=== PATIENT | male | born 1935 | race Caucasian/White ===

== ENCOUNTER 2018-06-17 06:25 | Day surgery (SDC) | payer OTHER ==
[~2018-06-17 06:25] MED LIST: AMLODIPINE-BEN1 EAC2; BETHANECHOL CHL50 MG; CAPTOPRIL50 MG; COZAAR100 MG; FUROSEMIDE20 MG; LASIX20 MG; PANTOPRAZOLE SO20 MG; TOPROL XL50 M1
[2018-06-17] MEDS ORDERED: PERCOCET 5-3251 EACH PO (09:28)
[2018-06-17] MEDS ORDERED: NUPERCAINAL56.7 GM TOP (09:28)
== END 2018-06-17 15:10 | disposition home or self-care (01) ==
LOC: CIR.AMB 06:25
DX: K64.8 Other hemorrhoids (principal); K64.4 Residual hemorrhoidal skin tags

== ENCOUNTER 2018-07-13 02:19 | Emergency (ER) | payer OTHER ==
[~2018-07-13] VITALS: Ht 182.9 cm; Wt 77.1 kg
[~2018-07-13 02:19] MED LIST changes: +NUPERCAINAL56.7 GM TOP; +PERCOCET 5-3251 EACH PO
[2018-07-13] MEDS ORDERED: LOSARTAN POTASS50 MG (02:41)
[2018-07-13] MEDS ORDERED: MIRALAX17 GM (02:41)
[2018-07-13] MEDS ORDERED: LEVSIN/SL0.125 MG SL (07:20)
[2018-07-13] MEDS ORDERED: PEPCID AC20 MG PO (07:20)
[2018-07-13] MEDS ORDERED: INTESTINEX680 M1 PO (07:20)
== END 2018-07-13 07:59 | disposition home or self-care (01) ==
LOC: ER 02:19
DX: R10.84 Generalized abdominal pain (principal)

== ENCOUNTER 2018-07-16 05:47 | Inpatient (IN) | payer OTHER ==
[~2018-07-16] VITALS: Ht 182.9 cm; Wt 77.1 kg
[~2018-07-16 05:47] MED LIST changes: +INTESTINEX680 M1 PO; +LEVSIN/SL0.125 MG SL; +LOSARTAN POTASS50 MG; +MIRALAX17 GM; +PEPCID AC20 MG PO
[2018-07-16] MEDS ORDERED: CIPRO500 MG (06:08)
[2018-07-16] MEDS ORDERED: COZAAR100 MG (06:08)
[2018-07-16] MEDS ORDERED: AMLODIPINE BESYL5 MG (06:08)
[2018-07-16] MEDS ORDERED: ACID CONTROLLER20 MG (06:08)
[2018-07-16] MEDS ORDERED: FLAGYL500MG (06:09)
[2018-07-19] MEDS ORDERED: PROCTOCORT30 MG RECTAL ×2 (12:18)
== END 2018-07-19 16:53 | disposition home or self-care (01) | DRG 394 ==
LOC: ER 05:47 → SURH 14:34 → SEC-K 14:34 → SURH 16:16
PROVIDERS: ADMIT Surgery
PROC: BW21ZZZ Computerized Tomography (CT Scan) of Abdomen and Pelvis (ICD-10-PCS; 2018-07-16)
PROC: 0DBN8ZX Excision of Sigmoid Colon, Via Natural or Artificial Opening Endoscopic, Diagnostic (ICD-10-PCS; principal; 2018-07-18)
DX: K62.7 Radiation proctitis (principal); K62.5 Hemorrhage of anus and rectum; K62.1 Rectal polyp; A08.8 Other specified intestinal infections; K64.2 Third degree hemorrhoids; R15.9 Full incontinence of feces; I15.1 Hypertension secondary to other renal disorders